=== PATIENT | female | born 1950 | race Caucasian/White ===

== ENCOUNTER → 2017-10-20 | Outpatient (CLI) | payer MEDICARE | END | disposition home or self-care (01) | LOC: SUSANVILLE 13:00 | PROVIDERS: ATTEND Internal Medicine Cardiovascular Disease | DX: I34.0 Nonrheumatic mitral (valve) insufficiency (principal); I35.8 Other nonrheumatic aortic valve disorders | CPT/HCPCS: 93306 ==

== ENCOUNTER → 2017-11-06 | Outpatient (CLI) | payer MEDICARE ==
[~2017-11-06] MED LIST: REGADENOSON 0.4 MG/5 ML SYRINGE ONE
== END | disposition home or self-care (01) ==
LOC: RAD 10:29
PROVIDERS: ATTEND Internal Medicine Cardiovascular Disease
DX: I25.9 Chronic ischemic heart disease, unspecified (principal); I21.19 ST elevation (STEMI) myocardial infarction involving other coronary artery of inferior wall; I10 Essential (primary) hypertension; I49.3 Ventricular premature depolarization
CPT/HCPCS: 78452; 93017; A9502; J2785